=== PATIENT | male | born 1985 | race Caucasian/White ===

== ENCOUNTER 2024-03-19 13:10 | Emergency (ER) | payer BC, MEDICAID ==
[~2024-03-19] VITALS: Ht 180.3 cm; Wt 85.4 kg
[2024-03-19 13:13] VITALS: TEMP 98
[2024-03-19 16:40] VITALS: BP 120/76; PULSE 86; RESP 14; O2SAT 99
== END 2024-03-19 16:44 | disposition home or self-care (01) ==
LOC: ER 13:11
DX: Z00.00 Encounter for general adult medical examination without abnormal findings (principal)
CPT/HCPCS: 93005; 99283